=== PATIENT | female | born 1985 | race Caucasian/White ===

== ENCOUNTER → 2016-07-15 | Outpatient (CLI) | payer OTHER ==
[~2016-07-15] MED LIST: BCPILLS PO; CLIN150C PO; MULT-506 PO; ONDA4TAB10 SL; TRAM-10 PO
[2016-07-21 13:53] LABS: CHLAMYDIA TRACH RNA*** NOT DETECTED (NOT DETECTED); GC (NEIS GONORRHOEAE)RNA** NOT DETECTED (NOT DETECTED); TRICHOMONAS VAGINALIS RNA** NOT DETECTED (NOT DETECTED)
== END | disposition home or self-care (01) ==
LOC: C.LAB1850 09:39
PROVIDERS: ATTEND Obstetrics & Gynecology
DX: Z11.3 Encounter for screening for infections with a predominantly sexual mode of transmission (principal)

== ENCOUNTER → 2016-10-18 | Outpatient (CLI) | payer OTHER | END | disposition home or self-care (01) | LOC: C.LABSPEC 10:34 | PROVIDERS: ATTEND Urology | DX: R30.0 Dysuria (principal) ==

== ENCOUNTER → 2017-01-16 | Outpatient (CLI) | payer OTHER ==
[2017-01-16 12:21] LABS: BLOOD UREA NITROGEN 18 mg/dl (7-18); BUN/CREATININE RATIO 22.4 (10-20); CALCIUM 8.9 mg/dl (8.5-10.1); CARBON DIOXIDE 26 mmol/L (21-32); CHLORIDE 106 mmol/L (98-107); GLUCOSE 85 mg/dl (70-99); POTASSIUM 4.1 mmol/L (3.5-5.1); SODIUM 139 mmol/L (136-145)
[2017-01-16 12:25] LABS: CHOLESTEROL 192 mg/dl (0-200); HDL CHOLESTEROL 65 mg/dl; LDL CHOLESTEROL CALCULATED 113 mg/dl; TRIGLYCERIDES 69 mg/dl (0-150); VERY LOW DENSITY LIPOPROT CALC 14 mg/dl
== END | disposition home or self-care (01) ==
LOC: C.LABBFT 08:31
PROVIDERS: ATTEND Nurse Practitioner
DX: Z00.00 Encounter for general adult medical examination without abnormal findings (principal)

== ENCOUNTER 2017-02-27 10:25 | Emergency (ER) | payer OTHER ==
[~2017-02-27] VITALS: Ht 154.9 cm; Wt 57.8 kg
[~2017-02-27 10:25] MED LIST changes: -CLIN150C PO; -MULT-506 PO; -ONDA4TAB10 SL; -TRAM-10 PO
[2017-02-27 10:33] VITALS: BP 139/94; PULSE 89; TEMP 36.7; O2SAT 100; Ht 154.9 cm; Wt 57.8 kg
[2017-02-27] MEDS ORDERED: MULT-506 PO (10:40)
[2017-02-27] MEDS ORDERED: MoRPHine SULFATE 4 MG/ML 1 ML CARP\\VIAL IV STA (10:54)
[2017-02-27] MEDS ORDERED: ONDANSETRON INJ 2 MG/ML 2 ML VIAL IV STA (10:54)
[2017-02-27] MEDS ORDERED: CLINDAMYCIN IV 900 MG in DEXTROSE 5% 100ML 100 ML IV ONE (11:00)
[2017-02-27] MEDS ORDERED: XYLOCAINE 1%/SOD BICARB 20 ML VIAL INFIL ONE (11:00)
[2017-02-27] MEDS ORDERED: BENZOCAINE 20% AER SPR 82.5 GM CAN EXT ONE (11:00)
[2017-02-27 11:22] LABS: BASO % 0.2 %; BASO ABS # 0.02 K/uL (0-0.2); COMPLETE YES; HEMATOCRIT 38.9 % (37-47); IG% 0.1 %; LYMPH % 19.7 %; LYMPH ABS # 1.64 K/uL (1.2-3.4); MEAN CELL VOLUME 91.5 fL (80-100); MEAN CORPUSCULAR HEMOGLOBIN 30.4 pg (25-34); MEAN CORPUSCULAR HGB CONC 33.2 g/dl (32-36); MEAN PLATELET VOLUME 8.9 fL (7.4-10.4); MONO % 8.6 %; NEUT % 70.4 %; PLATELET COUNT 302 K/uL (130-400); RED BLOOD COUNT 4.25 M/uL (4.2-5.4); WHITE BLOOD COUNT 8.33 K/uL (4.8-10.8)
[2017-02-27 11:37] LABS: INR 0.9 (0.9-1.1); PARTIAL THROMBOPLASTIN RATIO 1.1
[2017-02-27 11:41] LABS: BUN/CREATININE RATIO 17.5 (10-20); CALCIUM 8.8 mg/dl (8.5-10.1); CREATININE 0.67 mg/dl (0.60-1.20)
[2017-02-27] MEDS ORDERED: TRAMADOL HCL 50 MG HOME PACK PO ONE (12:00)
[2017-02-27] MEDS ORDERED: CLINDAMYCIN 150MG HOME PACK PO ONE (12:00)
[2017-02-27] MEDS ORDERED: IBUPROFEN 200 MG TAB PO STA (12:00)
[2017-02-27] MEDS ORDERED: HYDROCODONE/ACETAMOPHEN 5/325MG TAB PO STA (12:00)
[2017-02-27] MEDS ORDERED: ONDA4TAB10 SL (12:13)
[2017-02-27] MEDS ORDERED: TRAM-10 PO (12:13)
[2017-02-27] MEDS ORDERED: CLIN150C PO (12:13)
--- NOTE | 2017-02-27 12:15 | EMERGENCY ROOM VISIT NOTE ---
History Report prepared by Ronel: Eduardo Kennedy Under the Supervision of: Dr. Benigno Russell M.D. First contact with patient: 10:38 Chief Complaint: FACIAL PAIN/INJURY Stated Complaint: R SWOLLEN GUM, TNDERNESS & SWELLING IN NECK, PAIN History of Present Illness The patient is a 31 year old white female who presents to the ED with a cc of right sided facial pain and swelling beginning about a month ago. Worsened over the past two weeks. Was on Augmentin for her symptoms. Was placed on Cipro for a UTI within the past month as well. Has been in contact with a dentist who prescribed her a mouth wash, but has not evaluated her in person. Negative fevers, chills, nausea or vomiting. No difficulty swallowing. No drainage. Source of History: patient Onset: about a month ago Position: head (right face) Quality: other (pain and swelling) Timing: worsening Associated Symptoms: No fevers, No chills, No nausea, No vomiting Review of Systems See HPI for pertinent positives and negatives. A total of ten systems were reviewed and were otherwise negative. Past Medical & Surgical Medical Problems: (1) No Known Active Medical Problems Family History No pertinent family history stated. Social History Smoking Status: Never Smoker Smokeless Tobacco Use: No Alcohol Use: occasionally Drug Use: none Occupation Status: employed Current/Historical Medications Scheduled Control Pills ( Control Pills), 1 TAB PO DAILY Clindamycin Hcl (Cleocin), 3 CAP PO TID Multivitamin (Multivitamin), 1 TAB PO DAILY Ondasetron Odt (Zofran Odt), 4 MG SL Q6H Scheduled PRN Tramadol (Ultram), 50 MG PO Q8H PRN for Pain Allergies Coded Allergies: No Known Allergies (Unverified , NONE, 02/27/17) Physical Exam Vital Signs Date Time Temp Pulse Resp B/P (MAP) Pulse Ox O2 Delivery O2 Flow Rate FiO2 02/27/17 10:33 36.7 89 20 139/94 100 Room Air Physical Exam GENERAL: Awake, alert, well-appearing, NAD HENT: Normocephalic, atraumatic. Obvious right sided facial swelling noted. No pain to the teeth. Posterior oropharynx is clear. Obvious area of fluctuance lateral to right mandible. EYES: Normal conjunctiva. Sclera non-icteric. NECK: Supple. No nuchal rigidity. FROM. No stridor. RESPIRATORY: CTAB, no rhonchi, wheezing, crackles CARDIAC: RRR, no MRG ABDOMEN: Soft, NTND, BS+ MSK: No chest wall TTP, no LE edema NEURO: GCS 15, CN 2-12 intact, moves all 4s on command SKIN: No rash or jaundice noted. Medical Decision & Procedures Laboratory Results 02/27/17 11:07 Red Blood Count 4.25, Mean Corpuscular Volume 91.5, Mean Corpuscular Hemoglobin 30.4, Mean Corpuscular Hemoglobin Concent 33.2, Mean Platelet Volume 8.9, Neutrophils (%) (Auto) 70.4, Lymphocytes (%) (Auto) 19.7, Monocytes (%) (Auto) 8.6, Eosinophils (%) (Auto) 1.0, Basophils (%) (Auto) 0.2, Neutrophils # (Auto) 5.86, Lymphocytes # (Auto) 1.64, Monocytes # (Auto) 0.72, Eosinophils # (Auto) 0.08, Basophils # (Auto) 0.02 02/27/17 11:07 Test 02/27/17 11:07 White Blood Count 8.33 K/uL (4.8-10.8) Red Blood Count 4.25 M/uL (4.2-5.4) Hemoglobin 12.9 g/dL (12.0-16.0) Hematocrit 38.9 % (37-47) Mean Corpuscular Volume 91.5 fL (80-100) Mean Corpuscular Hemoglobin 30.4 pg (25-34) Mean Corpuscular Hemoglobin Concent 33.2 g/dl (32-36) Platelet Count 302 K/uL (130-400) Mean Platelet Volume 8.9 fL (7.4-10.4) Neutrophils (%) (Auto) 70.4 % Lymphocytes (%) (Auto) 19.7 % Monocytes (%) (Auto) 8.6 % Eosinophils (%) (Auto) 1.0 % Basophils (%) (Auto) 0.2 % Neutrophils # (Auto) 5.86 K/uL (1.4-6.5) Lymphocytes # (Auto) 1.64 K/uL (1.2-3.4) Monocytes # (Auto) 0.72 K/uL (0.11-0.59) Eosinophils # (Auto) 0.08 K/uL (0-0.5) Basophils # (Auto) 0.02 K/uL (0-0.2) RDW Standard Deviation 41.4 fL (36.4-46.3) RDW Coefficient of Variation 12.3 % (11.5-14.5) Immature Granulocyte % (Auto) 0.1 % Immature Granulocyte # (Auto) 0.01 K/uL (0.00-0.02) Prothrombin Time 10.0 SECONDS (9.0-12.0) Prothromb Time International Ratio 0.9 (0.9-1.1) Activated Partial Thromboplast Time 28.1 SECONDS (21.0-31.0) Partial Thromboplastin Ratio 1.1 Anion Gap 7.0 mmol/L (3-11) Est Creatinine Clear Calc Drug Dose 98.5 ml/min Estimated GFR () 134.8 Estimated GFR (Non- 116.3 BUN/Creatinine Ratio 17.5 (10-20) Calcium Level 8.8 mg/dl (8.5-10.1) Laboratory results reviewed by me Medications Administered Medications (Trade) Dose Ordered Sig/Mason Route Start Time Stop Time Status Last Admin Dose Admin Morphine Sulfate (MoRPHine SULFATE INJ) 4 mg NOW STAT IV 02/27/17 10:54 02/27/17 10:56 DC 02/27/17 10:54 4 MG Clindamycin Phosphate 900 mg/ Dextrose 106 ml @ 100 mls/hr ONE ONCE IV 02/27/17 11:00 02/27/17 12:03 DC 02/27/17 11:00 100 MLS/HR Ondansetron HCl (Zofran Inj) 4 mg NOW STAT IV 02/27/17 10:54 02/27/17 10:57 DC 02/27/17 10:54 4 MG Acetaminophen/ Hydrocodone Bitart (Meridian 5/325 Tab) 1 tab ONE STAT PO 02/27/17 12:00 02/27/17 12:03 DC 02/27/17 12:00 1 TAB Ibuprofen (Advil Tab) 400 mg NOW STAT PO 02/27/17 12:00 02/27/17 12:03 DC 02/27/17 12:00 400 MG Tramadol HCl (Ultram Home Pack) 1 homepack UD ONCE PO 02/27/17 12:00 02/27/17 12:03 DC 02/27/17 12:00 1 HOMEPACK Clindamycin HCl (Cleocin 150MG Home Pack) 1 homepack UD ONCE PO 02/27/17 12:00 02/27/17 12:03 DC 02/27/17 12:00 1 HOMEPACK Procedure Incision & Drainage Indication: Abscess. Location: Lateral to the right lower mandible. Verbal consent was obtained after the risks and benefits were explained, including but not limited to bleeding, scarring, infection, pain, and bone/joint /nerve damage. At this time, the risks of the procedure are less than the risks of NOT performing the procedure. A time out was taken and the correct patient and site identified. A sterile field was set. The wound was anesthetized with 8 ml of 1% lidocaine without epinephrine. The abscess cavity was entered with an 18-gauge needle, and opened with a number 11 blade. Purulent material expressed. Copious irrigation was performed using saline. The wound was explored for foreign bodies and none found. Debridement was not performed. Packing placed and a sterile dressing applied. Detailed wound care instructions and signs and symptoms of worsening infection reviewed with the patient. No complications and the patient tolerated the procedure well. ED Course 1044: The patient was evaluated in room B5. A complete history and physical exam was performed. 1054: Ordered Morphine Sulfate 4 mg IV. 1100: Ordered Clindamycin Phosphate 900 mg/Dextrose 106 mL @ 100 mL/hr IV, Buffered Lidocaine 1% Inj 20 mL INFI. 1150: I performed an incision and drainage. See the procedure note for details. 1200: Ordered Cleocin 150 mg home pack PO, Ultram Home Pack PO, Advil Tab 400 mg PO, [place] 5/325 Tab PO. 1250: I reevaluated the patient. Discussed results and discharge instructions: she verbalized understanding and agreement. The patient is ready for discharge. Medical Decision The patient is a 31 year old white female who presents to the ED with a cc of right sided facial pain and swelling beginning about a month ago. Differential diagnosis includes but is not limited to; facial abscess, dental abscess, Kapil 's angina, and poor dentition. Patient was seen and evaluated at the bedside. Patient's had some mild facial swelling that has gotten progressively worse over the last month. No history diabetes. Patient did have an area of fluctuance lateral to the right lower mandible. An incision and drainage was performed with expression of purulent fluid. Patient's pain as well as discomfort and swelling improved. Patient was given first dose of antibiotics. Patient was given strict follow-up, discharge, and f/u instructions. Patient agreed with plan of care the patient was safely discharged home. Medication Reconcilliation Current Medication List: was personally reviewed by me Blood Pressure Screening Patient's blood pressure: Elevated blood pressure Blood pressure disposition: Elevated BP felt to be situational Impression Primary Impression: Mandibular abscess Additional Impressions: Facial pain Facial swelling Encounter for incision and drainage procedure Scribe Attestation The scribe's documentation has been prepared under my direction and personally reviewed by me in its entirety. I confirm that the note above accurately reflects all work, treatment, procedures, and medical decision making performed by me. Departure Information Dispostion Home / Self-Care Prescriptions Ondasetron Odt (ZOFRAN ODT) 4 Mg Tab 4 MG SL Q6H for Nausea, #6 TAB Prov: Benigno Russell M.D. 02/27/17 Clindamycin Hcl (CLEOCIN) 150 Mg Cap 3 CAP PO TID for 7 Days, #63 CAP Prov: Benigno Russell M.D. 02/27/17 Tramadol (Ultram) 50 Mg Tab 50 MG PO Q8H Y for Pain, #15 TAB Prov: Benigno Russell M.D. 02/27/17 Referrals Consuelo Gold C.R.NJosette (PCP) Patient Instructions Dental Abscess, Drainage Abscess, My [facility] Additional Instructions Please return to the emergency department if you have worsening or recurrent symptoms not amenable to at-home treatment. Please call for a follow-up appointment with her primary care physician. Please take your medications as prescribed. If you have other concerns and/or complaints please feel free to also call your primary care physician's office or return the ED for further evaluation, management, and treatment. You received narcotic or benzodiazepene medication while in the emergency room today. This is an addictive medication that may cause drowziness as well as constipation. Do not drive, operate heavy machinery, or drink alcohol under the influence of this medication. Take 800 mg Ibuprofen every 6 hours for pain w/ food for no more than two consecutive days. You may take 1000mg of tylenol every 6 hours for pain. You may take motrin/tylenol at same time or at staggered intervals. You may also apply ice packs to side of face for swelling. Take Tramadol for breakthrough pain. You have been examined and treated today on an emergency basis only. This is not a substitute for, or an effort to provide, complete comprehensive medical care. It is impossible to recognize and treat all injuries or illnesses in a single emergency department visit. It is therefore important that you follow up closely with [facility]. Call as soon as possible for an appointment. Thank you for your time and consideration. I look forward to speaking with you again soon. Please don't hesitate to call us if you have any questions. Work Instructions Return To Work: 1 day Specific Date: 03/01/17 Problem Qualifiers
== END 2017-02-27 12:51 | disposition home or self-care (01) ==
LOC: C.EDB 10:27
DX: K12.2 Cellulitis and abscess of mouth (principal); G50.1 Atypical facial pain; R22.0 Localized swelling, mass and lump, head

== ENCOUNTER → 2017-07-27 | Outpatient (CLI) | payer OTHER ==
[~2017-07-27] MED LIST changes: +MULT-506 PO; +ONDA4TAB10 SL; +TRAM-10 PO
== END | disposition home or self-care (01) ==
LOC: C.LABSPEC 17:21
PROVIDERS: ATTEND Nurse Practitioner Adult Health
DX: R30.0 Dysuria (principal)

== ENCOUNTER 2022-08-02 07:40 | Inpatient (IN) ==
--- NOTE | 2022-08-02 08:39 | History & Physical Report ---
Date of Service August 02, 2022 Assessment & Plan (1) Supervision of elderly primigravida: Plan: - Plan for induction with Cytotec - Bernal bulb was attempted last night but was unsuccessful - routine labor care, epidural as desired Admission and Anticipated Discharge Date Admission Date: August 02, 2022 History of Present Illness Primary Care Provider: PARI Whitt Shannon is a 37 y/o female currently at 40 5/7 WGA with an KUNAL 07/28/2022 as determined by LMP who is here for induction. irregular contractions; + movement; denies fluid loss; denies bloody show External FHT and external uterine monitors used; Category 1 tracing; moderate FHT variability. Had regular appointments with OB. OB Labs: Blood Type A Positive 01/14/22 Antibody Screen NEGATIVE 01/14/22 Hemoglobin 11.8 g/dl (12.0-16.0) L 05/14/22 Hematocrit 33.7 % (34.1-44.9) L 05/14/22 Mean Corpuscular Volume 91.5 fL (80.0-100.0) 12/21/21 Platelet Count 345 Thousand/uL (140-400) 12/21/21 Varicella-Zoster IgG Antibody 343.40 index 03/13/20 Rubella IgG Antibody Immune (Immune) 01/14/22 Rapid Plasma Reagin Nonreactive (Nonreactive) 01/14/22 Hepatitis B Surface Antigen. NON-REACTIVE (NON-REACTIVE) 12/21/21 Hepatitis C Antibody (EIA) NON-REACTIVE (NON-REACTIVE) 12/21/21 HIV (1&2) Ab and P24 Ag, 4th Gener NON-REACTIVE (NON-REACTIVE) 12/21/21 HIV (1&2) Ag and Ab Confirmation NON-REACTIVE (NON-REACTIVE) 01/14/22 Glucose 1 Hour 50 gm Load 177 mg/dl (70-130) H 02/15/22 GBS negative OB Optional Labs: Chlamydia trachomatis RNA NOT DETECTED (NOT DETECTED) 12/20/21 Neisseria gonorrhoeae RNA NOT DETECTED (NOT DETECTED) 12/20/21 12/21/21 RPR Non reactive Declines cf/sma--mln cfdna-low risk--mln Declines msafp--mln Allergies Allergy/AdvReac Type Severity Reaction Status Date / Time acetaminophen [From Percocet] Allergy GI upset Verified 08/01/22 12:53 morphine Allergy GI upset Verified 08/01/22 12:53 oxycodone [From Percocet] Allergy GI upset Verified 08/01/22 12:53 Home Medications Medication Instructions Recorded Confirmed Type prenat.vits,cedrick,ytr-ivsg-iumup 1 tab PO DAILY 12/13/21 08/01/22 History Patient History Medical History Atypical squamous cells of undetermined significance (ASC-US) on cervical Pap smear History of chicken pox Hx of dysplastic nevus Surgical History H/O oral surgery Status post colposcopy Family History Grandfather (Maternal) Coronary heart disease Grandmother Diabetes Hypertension Grandfather Diabetes Hypertension Leukemia Myocardial infarction Denies family history of Ovarian cancer Breast cancer Colorectal cancer Social History Smoking Status: Never smoker Hx Alcohol Use: No Hx Substance Use: No Preferred Language: Belarusian Communication Ability: Effective Maintenance Superintendent Required: No Beliefs That Will Affect Care: None marital status: Single marital status details: kaity Acosta [phone] Current Living Situation: Significant Other Current Living Situation Comment: lives with ninfab, no pets current occupational status: employed 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 Other Information That Helps Us Care for You: No Feels Safe at Home: Yes Safety Concerns: Feels Safe At This Time Gender Identity: Female Assistive Devices: None OB History History : 1 Full term: 0 Premature: 0 Total Number of Induced Abortions: 0 Total Number of Spontaneous Abortions: 0 Ectopics: 0 Multiple births: 0 Number of Living Children: 0 Menstrual History Last menstrual period: Yes Menstrual reliability: definite Flow: normal Menstrual regularity: regular Monthly: Yes Age at menarche: 12 On control pills at conception: No Date of positive home test: 11/25/21 Menstrual history comments: cycles 25-28 days Details: last pap 09/22/[address] Mcarthur Review of Systems Denies fever, chills, sweats Denies shortness of breath, difficulty breathing, chest pain, palpitations, chest pressure. Denies breast pain. Denies dysuria. Denies headache or changes in vision. Physical Exam Physical Exam: General: Alert, oriented. No acute distress. Cardiac: Regular rate and rhythm, no murmurs/rubs/gallops. Respiratory: Clear to auscultation bilaterally a/p, no wheezes/rales/rhonchi. No increased work of breathing. Symmetrical chest rise. No respiratory distress. Abdomen: Gravid; + FHTs Pelvic: Closed; Effacement 50%; Station -[address] Marquez Lower Extremities: No lower extremity edema or swelling. No deep calf pain. Kevin's negative bilaterally Results & Data ([facility]) Vital Signs (Past 12 Hours) Vital Signs Pulse BP 08/02/22 08:05 94 H 124/89 Supervising Physician Co-Signing Physician Notes Resident Physician Supervision Note: I interviewed and examined the patient. Discussed with Dr. Weaver and agree with findings and plan as documented in the note. Any exceptions or clarifications are listed here: 37yo @ 40 5/7, here for IOL. Attempt at bernal bulb insertion last night was not successful, patient declines another attempt this morning. Instead, she was agreeable to cytotec for cervical ripening. 25mcg cytotec placed vaginally. Documented By: Marsha Marquez, Resident Activity Tracking Resident Involvement: Resident Care Provided Care Provided: OB Delivery
[2022-08-02] MEDS ORDERED: OXYTOCIN 30 UNITS/500 ML BAG IV PRN ×2 (08:58)
[2022-08-02] MEDS ORDERED: LIDOCAINE 1% LOCAL 20 ML VIAL INFIL PRN (08:58)
[2022-08-02] MEDS ORDERED: miSOPROStoL 25 MCG TAB PV SCH ×2 (09:30→12:00)
[2022-08-02 09:55] LABS: Hematocrit (blood only) 35.9 % (37.0-47.0); Hemoglobin 12.9 g/dl (12.0-16.0); Mean Corpuscular Hemoglobin 32.4 pg (25.0-34.0); Mean Corpuscular Hgb Conc 35.9 g/dL (32.0-36.0); Mean Corpuscular Volume 90.2 fL (80.0-100.0); Mean Platelet Volume 10.5 fL (9.4-12.4); Platelet Count 228 K/uL (130-400); RDW Coefficient of Variation 12.5 % (11.5-14.5); RDW Standard Deviation 40.6 fL (36.4-46.3); Red Blood Count 3.98 M/uL (4.20-5.40); White Blood Count 7.09 K/ul (4.8-10.8)
--- NOTE | 2022-08-02 14:20 | Labor Progress Brief Note ---
Date of Service August 02, 2022 Subjective Feeling ctx. FHT Cat 1 [place] Q 1-3 SVE /-2, soft, posterior - exam is very difficult d/t patient's discomfort. Will start pitocin, as contraction pattern does not allow another dose of cytotec. Patient agrees with plan. Assessment & Plan Admission and Anticipated Discharge Date Admission Date: August 02, 2022 Results & Data ([facility]) Vital Signs (Past 12 Hours) Vital Signs Temp Pulse Resp BP 08/02/22 08:41 36.5 C 20 08/02/22 13:43 36.8 C 69 20 137/85 08/02/22 08:05 94 H 124/89 Coding Level of Care Code None
[2022-08-02] MEDS: LACTATED RINGER'S 1,000 ML IV PRN ×2 (14:29→20:01)
[2022-08-02] MEDS ORDERED: Nursing to Pharmacy Communication SCH (14:30)
[2022-08-02] MEDS ORDERED: fentaNYL 2MCG/ML ROPIVACAINE 1.25MG/ML 100 ML BAG EPI ONE (19:17)
[2022-08-02] MEDS ORDERED: fentaNYL citrate 100 MCG/2 ML VIAL ONE (19:17)
[2022-08-02] MEDS ORDERED: LIDOCAINE 2%/EPINEPHRINE 1:200,000 20 ML SDV ONE (19:17)
[2022-08-02] MEDS ORDERED: ePHEDrine sulfate 50 MG/ML AMP ONE (19:17)
[2022-08-02] MEDS ORDERED: SODIUM CHLORIDE 0.9% INJ 10 ML VIAL ONE ×2 (19:17→22:59)
[2022-08-02] MEDS ORDERED: BUPIVACAINE 0.25% 30 ML VIAL ONE ×2 (19:17→22:59)
[2022-08-02] MEDS ORDERED: ePHEDrine sulfate 50 MG/ML AMP IV PRN (19:21)
[2022-08-02] MEDS ORDERED: diphenhydrAMINE 50 MG/ML VIAL IV PRN (19:21)
[2022-08-02] MEDS ORDERED: NALOXONE HCL 1 MG in SODIUM CHLORIDE 0.9% 1000ML 1,000 ML IV PRN (19:21)
[2022-08-02] MEDS ORDERED: NALBUPHINE HCL INJ 10 MG/ML AMP IV PRN (19:21)
[2022-08-02] MEDS ORDERED: NALOXONE HCL 0.4 MG/1 ML VIAL/CARP IV PRN (19:21)
--- NOTE | 2022-08-02 19:21 | Anesthesiology Consultation ---
Date of Service August 02, 2022 Assessment & Plan (1) Encounter for pre-operative examination: Chart Review Chart Review: Patient NOT seen in Pre Admission Testing and Acceptable Risk for Labor Epidural Consults Requested none History Height/Weight Height: 5 ft 1 in Weight: 75.75 kg Allergies Allergy/AdvReac Type Severity Reaction Status Date / Time acetaminophen [From Percocet] Allergy GI upset Verified 08/01/22 12:53 morphine Allergy GI upset Verified 08/01/22 12:53 oxycodone [From Percocet] Allergy GI upset Verified 08/01/22 12:53 Medications Home Medications Medication Instructions Recorded Confirmed Last Taken prenat.vits,cedrick,xnt-mfjt-gpooo 1 tab PO DAILY 12/13/21 08/02/22 08/01/22 21:00 Active Medications Generic Name Dose Route Start Last Admin Trade Name Freq PRN Reason Stop Dose Admin Oxytocin 30 units in 500 mls @ 7 mls/hr 08/02/22 08:58 08/02/22 19:02 Pitocin IV 08/04/22 08:57 0.42 units/hr .Q24H PRN 7 mls/hr Labor Induction/Augmentation Titration Protocol 0.42 UNITS/HR Lactated Ringer's 1,000 mls @ 125 mls/hr 08/02/22 08:58 08/02/22 14:29 Lr IV 08/04/22 08:57 125 mls/hr .Q8H PRN Administration L&D Protocol Protocol Past Medical History Medical History Atypical squamous cells of undetermined significance (ASC-US) on cervical Pap smear History of chicken pox Hx of dysplastic nevus Past Family History Family History Grandfather (Maternal) Coronary heart disease Grandmother Diabetes Hypertension Grandfather Diabetes Hypertension Leukemia Myocardial infarction Denies family history of Ovarian cancer Breast cancer Colorectal cancer Past Surgical History Surgical History H/O oral surgery Status post colposcopy Social History Smoking Status: Never smoker Hx Alcohol Use: No Hx Substance Use: No substance use type: does not use Physical Exam Vital Signs Last Vital Signs Temp 98.2 F 08/02/22 15:08 Pulse 74 08/02/22 19:02 Resp 16 08/02/22 15:08 BP 123/72 08/02/22 19:02 Testing Laboratory Results 08/02/22 09:08
[2022-08-02] MEDS: fentaNYL 2MCG/ML ROPIVACAINE 1.25MG/ML 100 ML BAG EPI PRN (19:48)
[2022-08-02] MEDS ORDERED: ONDANSETRON INJ 2 MG/ML 2 ML VIAL IV PRN (20:31)
--- NOTE | 2022-08-02 20:32 | Labor Progress Brief Note ---
Date of Service August 02, 2022 Subjective Comfortable now with epidural. FHT Cat 1 [place] Q 2 SVE /-1 AROM clear fluid. Continue labor/pitocin. Assessment & Plan Admission and Anticipated Discharge Date Admission Date: August 02, 2022 Results & Data ([facility]) Vital Signs (Past 12 Hours) Vital Signs Temp Pulse Resp BP Pulse Ox 08/02/22 15:08 36.8 C 16 08/02/22 08:41 36.5 C 20 08/02/22 20:25 125 H 98 08/02/22 20:20 66 89 L 08/02/22 20:16 87 92 08/02/22 20:15 95 H 113/76 99 08/02/22 20:10 68 100 08/02/22 20:08 62 94 08/02/22 20:05 76 98 08/02/22 19:00 16 08/02/22 19:00 36.4 C L 16 08/02/22 20:00 99 08/02/22 20:00 93 H 08/02/22 20:00 100 H 91 08/02/22 19:59 69 18 123/72 08/02/22 19:55 63 100 08/02/22 19:53 91 H 93 08/02/22 19:51 65 108/65 08/02/22 19:50 97 08/02/22 19:50 92 H 08/02/22 19:50 77 107/66 08/02/22 19:48 72 107/59 L 08/02/22 19:45 71 99 08/02/22 19:46 73 110/60 08/02/22 19:44 79 18 123/76 08/02/22 19:43 81 92 08/02/22 19:40 73 98 08/02/22 19:35 73 100 08/02/22 19:30 75 100 08/02/22 19:02 74 123/72 08/02/22 17:59 72 121/66 08/02/22 17:07 64 119/75 08/02/22 15:58 65 118/69 08/02/22 15:04 70 123/76 08/02/22 14:38 80 123/80 08/02/22 13:43 36.8 C 69 20 137/85 Coding Level of Care Code None
[2022-08-02] MEDS ORDERED: NURSING L&D Epidural Breakthrough Pain Update ONE (22:14)
[2022-08-02] MEDS: fentaNYL citrate 100 MCG/2 ML VIAL ONE ×2 (23:06→23:11)
--- NOTE | 2022-08-02 23:51 | Labor Progress Brief Note ---
Date of Service August 02, 2022 Subjective Uncomfortable with ctx, epidural re-dosed. FHT Cat 1 [place] Q 2 SVE /-1 per RN Continue IOL Assessment & Plan Admission and Anticipated Discharge Date Admission Date: August 02, 2022 Results & Data ([facility]) Vital Signs (Past 12 Hours) Vital Signs Temp Pulse Resp BP Pulse Ox 08/02/22 15:08 36.8 C 16 08/02/22 23:49 68 112/58 L 08/02/22 23:45 74 18 93 08/02/22 23:15 18 08/02/22 23:15 18 08/02/22 23:44 71 93 08/02/22 23:40 75 95 08/02/22 23:39 70 94 08/02/22 23:35 76 93 08/02/22 23:34 104 H 128/63 08/02/22 23:33 71 94 08/02/22 23:30 83 97 08/02/22 23:29 80 115/77 08/02/22 23:27 82 118/57 L 94 08/02/22 23:25 93 H 163/65 H 97 08/02/22 23:23 93 H 148/79 H 08/02/22 23:20 96 H 95 08/02/22 23:17 103 H 139/91 08/02/22 23:15 96 08/02/22 23:15 113 H 08/02/22 23:14 125 H 94 08/02/22 23:15 133 H 137/90 08/02/22 23:10 75 93 08/02/22 23:11 70 135/83 08/02/22 23:09 63 125/82 08/02/22 23:08 65 93 08/02/22 23:07 72 138/89 08/02/22 23:05 97 08/02/22 23:05 74 08/02/22 23:05 69 132/85 08/02/22 23:02 93 08/02/22 23:02 73 08/02/22 23:02 70 141/80 H 08/02/22 23:00 36.8 C 72 94 08/02/22 22:57 69 94 08/02/22 22:55 69 97 08/02/22 22:50 75 96 08/02/22 22:48 69 92 08/02/22 22:45 16 08/02/22 22:45 81 16 98 08/02/22 22:44 92 H 127/70 08/02/22 22:40 84 95 08/02/22 22:37 78 93 08/02/22 22:35 72 96 08/02/22 22:30 16 08/02/22 22:30 16 08/02/22 22:31 72 93 08/02/22 22:30 97 08/02/22 22:30 71 08/02/22 22:30 67 114/73 08/02/22 22:25 68 97 08/02/22 22:20 69 98 08/02/22 22:15 62 18 127/76 94 08/02/22 22:13 63 94 08/02/22 22:10 36.7 C 68 97 08/02/22 22:05 61 94 08/02/22 22:03 63 93 08/02/22 22:00 72 16 98 08/02/22 21:59 74 118/66 08/02/22 21:55 89 95 08/02/22 21:50 69 96 08/02/22 21:49 67 94 08/02/22 21:45 66 16 108/57 L 97 08/02/22 21:43 68 94 08/02/22 21:40 75 95 08/02/22 21:35 95 08/02/22 21:35 80 08/02/22 21:35 76 94 08/02/22 21:30 70 16 97 08/02/22 21:31 68 118/68 08/02/22 21:25 75 96 08/02/22 21:22 71 94 08/02/22 21:20 69 97 08/02/22 21:16 94 H 100/54 L 94 08/02/22 21:15 84 18 94 08/02/22 21:10 70 96 08/02/22 21:05 75 95 08/02/22 21:04 67 94 08/02/22 21:00 16 08/02/22 21:00 16 08/02/22 21:00 94 08/02/22 21:00 68 08/02/22 21:00 64 113/68 08/02/22 20:57 68 94 08/02/22 20:55 75 94 08/02/22 20:52 72 94 08/02/22 20:50 68 96 08/02/22 20:45 82 18 95 08/02/22 20:44 73 109/77 94 08/02/22 20:40 86 95 08/02/22 20:35 83 97 08/02/22 20:30 81 18 98 08/02/22 20:25 125 H 98 08/02/22 20:20 66 89 L 08/02/22 20:16 87 92 08/02/22 20:15 95 H 16 113/76 99 08/02/22 20:10 68 100 08/02/22 20:08 62 94 08/02/22 20:05 76 98 08/02/22 19:00 16 08/02/22 19:00 36.4 C L 16 08/02/22 20:00 99 08/02/22 20:00 93 H 08/02/22 20:00 100 H 91 08/02/22 19:59 69 18 123/72 08/02/22 19:55 63 100 08/02/22 19:53 91 H 93 08/02/22 19:51 65 108/65 08/02/22 19:50 97 08/02/22 19:50 92 H 08/02/22 19:50 77 107/66 08/02/22 19:48 72 107/59 L 08/02/22 19:45 71 99 08/02/22 19:46 73 110/60 08/02/22 19:44 79 18 123/76 08/02/22 19:43 81 92 08/02/22 19:40 73 98 08/02/22 19:35 73 100 08/02/22 19:30 75 100 08/02/22 19:02 74 123/72 08/02/22 17:59 72 121/66 08/02/22 17:07 64 119/75 08/02/22 15:58 65 118/69 08/02/22 15:04 70 123/76 08/02/22 14:38 80 123/80 08/02/22 13:43 36.8 C 69 20 137/85 Coding Level of Care Code None
[2022-08-03] MEDS: fentaNYL 2MCG/ML ROPIVACAINE 1.25MG/ML 100 ML BAG EPI PRN ×3 (00:07→08:14)
[2022-08-03] MEDS: LACTATED RINGER'S 1,000 ML IV PRN ×2 (03:14→07:39)
--- NOTE | 2022-08-03 07:27 | Labor Progress Brief Note ---
Date of Service August 03, 2022 Subjective Comfortable after epidural redose. FHT Cat 1 [place] Q 2 SVE 7/100/0 Continue labor. Assessment & Plan Admission and Anticipated Discharge Date Admission Date: August 02, 2022 Results & Data ([facility]) Vital Signs (Past 12 Hours) Vital Signs Temp Pulse Resp BP Pulse Ox 08/03/22 07:20 82 92 08/03/22 07:18 71 110/63 08/03/22 07:15 72 93 08/03/22 07:10 91 H 94 08/03/22 07:07 90 94 08/03/22 07:05 76 93 08/03/22 07:03 36.9 C 71 18 103/59 L 08/03/22 07:00 77 92 08/03/22 06:55 74 92 08/03/22 06:52 68 94 08/03/22 06:50 75 93 08/03/22 06:48 77 101/57 L 08/03/22 06:45 81 93 08/03/22 06:40 70 91 08/03/22 06:35 79 93 08/03/22 06:34 68 110/60 08/03/22 06:32 71 93 08/03/22 06:30 89 94 08/03/22 06:25 82 94 08/03/22 06:26 85 94 08/03/22 06:20 70 91 08/03/22 06:18 69 94 08/03/22 06:19 68 112/62 08/03/22 06:15 69 92 08/03/22 06:10 71 93 08/03/22 06:05 70 92 08/03/22 06:04 71 99/55 L 08/03/22 06:00 73 92 08/03/22 05:55 76 92 08/03/22 05:50 79 93 08/03/22 05:48 69 108/57 L 08/03/22 05:45 69 91 08/03/22 05:40 73 91 08/03/22 05:35 79 93 08/03/22 05:31 83 94 08/03/22 05:30 37.5 C 88 16 93 08/03/22 05:25 79 94 08/03/22 05:24 76 94 08/03/22 05:20 84 93 08/03/22 05:19 78 123/70 08/03/22 05:17 81 94 08/03/22 05:15 69 92 08/03/22 05:10 74 92 08/03/22 05:05 76 91 08/03/22 05:03 91 H 94 08/03/22 05:04 83 124/66 08/03/22 05:00 73 18 92 08/03/22 04:55 71 91 08/03/22 04:53 90 94 08/03/22 04:50 71 93 08/03/22 04:48 81 110/62 08/03/22 04:45 76 94 08/03/22 04:40 73 92 08/03/22 04:35 72 91 08/03/22 04:33 78 111/64 08/03/22 04:30 71 16 92 08/03/22 04:25 81 94 08/03/22 04:24 79 94 08/03/22 04:20 72 92 08/03/22 04:19 65 118/68 08/03/22 04:15 95 08/03/22 04:15 85 08/03/22 04:15 83 94 08/03/22 04:10 88 93 08/03/22 04:05 94 08/03/22 04:05 68 08/03/22 04:05 70 148/70 H 08/03/22 04:04 78 94 08/03/22 04:00 70 18 95 08/03/22 03:55 74 95 08/03/22 03:56 76 94 08/03/22 03:50 72 93 08/03/22 03:48 68 126/75 08/03/22 03:45 94 08/03/22 03:45 87 08/03/22 03:45 73 93 08/03/22 03:40 95 08/03/22 03:40 70 08/03/22 03:40 80 94 08/03/22 03:35 76 95 08/03/22 03:33 94 08/03/22 03:33 68 08/03/22 03:33 64 137/57 L 08/03/22 03:30 73 93 08/03/22 03:28 75 94 08/03/22 03:25 80 93 08/03/22 03:23 70 94 08/03/22 03:20 74 93 08/03/22 03:18 82 137/63 08/03/22 03:17 72 93 08/03/22 03:15 84 95 08/03/22 03:11 83 94 08/03/22 03:10 81 93 08/03/22 03:05 36.8 C 72 18 94 08/03/22 03:03 72 94 08/03/22 03:04 67 127/73 08/03/22 03:00 82 93 08/03/22 02:55 85 93 08/03/22 02:54 98 H 94 08/03/22 02:50 95 H 95 08/03/22 02:49 82 129/71 94 08/03/22 02:45 97 H 94 08/03/22 02:42 88 94 08/03/22 02:40 91 H 93 08/03/22 02:35 75 93 08/03/22 02:33 100 H 129/80 08/03/22 02:30 81 92 08/03/22 02:25 80 94 08/03/22 02:22 84 94 08/03/22 02:20 96 08/03/22 02:20 92 H 08/03/22 02:20 90 135/82 08/03/22 02:15 97 H 95 08/03/22 02:12 91 H 94 08/03/22 02:10 86 95 08/03/22 02:07 95 H 94 08/03/22 02:05 83 95 08/03/22 02:04 90 136/88 08/03/22 02:00 91 H 16 95 08/03/22 01:55 89 92 08/03/22 01:50 80 93 08/03/22 01:49 80 132/83 08/03/22 01:45 76 93 08/03/22 01:44 83 94 08/03/22 01:40 86 92 08/03/22 01:39 87 94 08/03/22 01:35 91 H 93 08/03/22 01:33 97 H 127/83 08/03/22 01:32 95 H 94 08/03/22 01:30 98 H 18 95 08/03/22 01:25 100 H 94 08/03/22 01:26 102 H 94 08/03/22 01:20 86 93 08/03/22 01:19 78 130/78 08/03/22 01:15 88 94 08/03/22 01:14 81 94 08/03/22 01:10 85 93 08/03/22 01:05 79 95 08/03/22 01:04 94 H 136/71 94 08/03/22 01:00 36.7 C 95 H 16 94 08/03/22 00:55 93 H 92 08/03/22 00:50 91 H 95 08/03/22 00:49 90 142/84 H 08/03/22 00:46 101 H 94 08/03/22 00:45 107 H 92 08/03/22 00:40 91 H 94 08/03/22 00:39 96 H 94 08/03/22 00:35 84 90 08/03/22 00:34 90 110/64 08/03/22 00:31 83 92 08/03/22 00:30 93 H 16 97 08/03/22 00:25 94 H 98 08/03/22 00:23 97 H 94 08/03/22 00:20 86 92 08/03/22 00:18 84 118/74 08/03/22 00:15 92 H 18 93 08/03/22 00:11 89 94 08/03/22 00:10 97 H 93 08/03/22 00:08 97 H 127/88 08/03/22 00:05 93 H 93 08/03/22 00:04 82 119/69 08/03/22 00:00 87 18 95 08/02/22 23:55 78 95 08/02/22 23:56 84 92 08/02/22 23:50 82 87 L 08/02/22 23:49 68 112/58 L 08/02/22 23:45 74 18 93 08/02/22 23:15 18 08/02/22 23:15 18 08/02/22 23:44 71 93 08/02/22 23:40 75 95 08/02/22 23:39 70 94 08/02/22 23:35 76 93 08/02/22 23:34 104 H 128/63 08/02/22 23:33 71 94 08/02/22 23:30 83 97 08/02/22 23:29 80 115/77 08/02/22 23:27 82 118/57 L 94 08/02/22 23:25 93 H 163/65 H 97 08/02/22 23:23 93 H 148/79 H 08/02/22 23:20 96 H 95 08/02/22 23:17 103 H 139/91 08/02/22 23:15 96 08/02/22 23:15 113 H 08/02/22 23:14 125 H 94 08/02/22 23:15 133 H 137/90 08/02/22 23:10 75 93 08/02/22 23:11 70 135/83 08/02/22 23:09 63 125/82 08/02/22 23:08 65 93 08/02/22 23:07 72 138/89 08/02/22 23:05 97 08/02/22 23:05 74 08/02/22 23:05 69 132/85 08/02/22 23:02 93 08/02/22 23:02 73 08/02/22 23:02 70 141/80 H 08/02/22 23:00 36.8 C 72 94 08/02/22 22:57 69 94 08/02/22 22:55 69 97 08/02/22 22:50 75 96 08/02/22 22:48 69 92 08/02/22 22:45 16 08/02/22 22:45 81 16 98 08/02/22 22:44 92 H 127/70 08/02/22 22:40 84 95 08/02/22 22:37 78 93 08/02/22 22:35 72 96 08/02/22 22:30 16 08/02/22 22:30 16 08/02/22 22:31 72 93 08/02/22 22:30 97 08/02/22 22:30 71 08/02/22 22:30 67 114/73 08/02/22 22:25 68 97 08/02/22 22:20 69 98 08/02/22 22:15 62 18 127/76 94 08/02/22 22:13 63 94 08/02/22 22:10 36.7 C 68 97 08/02/22 22:05 61 94 08/02/22 22:03 63 93 08/02/22 22:00 72 16 98 08/02/22 21:59 74 118/66 08/02/22 21:55 89 95 08/02/22 21:50 69 96 08/02/22 21:49 67 94 08/02/22 21:45 66 16 108/57 L 97 08/02/22 21:43 68 94 08/02/22 21:40 75 95 08/02/22 21:35 95 08/02/22 21:35 80 08/02/22 21:35 76 94 08/02/22 21:30 70 16 97 08/02/22 21:31 68 118/68 08/02/22 21:25 75 96 08/02/22 21:22 71 94 08/02/22 21:20 69 97 08/02/22 21:16 94 H 100/54 L 94 08/02/22 21:15 84 18 94 08/02/22 21:10 70 96 08/02/22 21:05 75 95 08/02/22 21:04 67 94 08/02/22 21:00 16 08/02/22 21:00 16 08/02/22 21:00 94 08/02/22 21:00 68 08/02/22 21:00 64 113/68 08/02/22 20:57 68 94 08/02/22 20:55 75 94 08/02/22 20:52 72 94 08/02/22 20:50 68 96 08/02/22 20:45 82 18 95 08/02/22 20:44 73 109/77 94 08/02/22 20:40 86 95 08/02/22 20:35 83 97 08/02/22 20:30 81 18 98 08/02/22 20:25 125 H 98 08/02/22 20:20 66 89 L 08/02/22 20:16 87 92 08/02/22 20:15 95 H 16 113/76 99 08/02/22 20:10 68 100 08/02/22 20:08 62 94 08/02/22 20:05 76 98 08/02/22 20:00 99 08/02/22 20:00 93 H 08/02/22 20:00 100 H 91 08/02/22 19:59 69 18 123/72 08/02/22 19:55 63 100 08/02/22 19:53 91 H 93 08/02/22 19:51 65 108/65 08/02/22 19:50 97 08/02/22 19:50 92 H 08/02/22 19:50 77 107/66 08/02/22 19:48 72 107/59 L 08/02/22 19:45 71 99 08/02/22 19:46 73 110/60 08/02/22 19:44 79 18 123/76 08/02/22 19:43 81 92 08/02/22 19:40 73 98 08/02/22 19:35 73 100 08/02/22 19:30 75 100 Coding Level of Care Code None
--- NOTE | 2022-08-03 10:00 | Delivery Summary ---
Vaginal Delivery Summary Date of Service August 03, 2022 Vaginal Delivery Summary Vaginal Delivery Summary: Pre-delivery diagnoses: 37yo @ 40 6/7, IOL for postdates, AMA Post-delivery diagnoses: same Procedure: spontaneous vaginal delivery Surgeon: Marsha Marquez DO Complications: none Findings: Viable female . Apgars: 3/8. Weight pending, please see nursery records. Estimated blood loss: 300ml Description of delivery: The patient progressed to complete with epidural anesthesia. She then began to push. She spontaneously vaginally delivered a viable from the cephalic presentation. The head delivered in CATRACHITO position. The head delivered, no nuchal. Anterior shoulder did not deliver immediately, therefore patient was repositioned in McRobert's Maneuver, then suprapubic pressure was applied. The anterior shoulder did not deliver i mmediately, therefore patient was repositioned again with McRobert's, and posterior shoulder delivered easily. The anterior shoulder followed, followed by the body. The baby was placed on mother's abdomen and a spontaneous cry was heard. The cord was immediately doubly clamped and cut and the baby was immediately handed off to the waiting nursery team. A segment was retained for cord gases. Cord blood was obtained. The placenta was delivered spontaneously intact with a 3-vessel cord. The uterus and vagina were swept of clots and debris. IV pitocin was given. The uterus became firm. The cervix, vagina, and perineum were inspected and superficial lacerations noted - right vaginal, left perineal - hemostatic, therefore not repaired. Excellent hemostasis was observed. Social Media Senior Associate was at bedside and briefly debriefed Mom. I also debriefed Mom on the events of shoulder dystocia. Total time from delivery of head to body - 90 seconds. The mother is recovering in stable and good condition in the room, baby was taken to nursery. Sponge and instrument counts were correct x 2. Marsha Marquez DO [facility]
[2022-08-03] MEDS ORDERED: HYDROCORTISONE ACETATE 25 MG SUPP PR PRN (10:08)
[2022-08-03] MEDS ORDERED: ACETAMINOPHEN 325 MG TAB PO PRN (10:08)
[2022-08-03] MEDS ORDERED: bisacodyL 10 MG SUPP PR PRN (10:08)
[2022-08-03] MEDS ORDERED: oxyCODONE/ACETAMINOPHEN 5mg/325mg TAB PO PRN (10:08)
[2022-08-03] MEDS ORDERED: BENZOCAINE 20% AER SPR 82.5 GM CAN EXT PRN (10:08)
[2022-08-03] MEDS ORDERED: OXYTOCIN 30 UNITS/500 ML BAG IV PRN (10:08)
[2022-08-03] MEDS ORDERED: DIPHTHERIA/TETANUS/PERTUSSIS 0.5mL SYR/VIAL (Age 7+yrs) IM ONE (10:08)
[2022-08-03 10:43] LABS: Base Excess Cord Arterial Bld -10.3 mEq/L (-9-1.8); CO2 Cord Arterial Blood 60 mmHg (39.1-73.5); HCO3 Cord Arterial Blood 20 mmol/L (19.7-28.5); Oxygen Sat Cord Arterial Blood < 60.0 % (<60); PO2 Cord Arterial Blood 28 mmHg (4.1-31.7); pH Cord Arterial Blood 7.13 (7.1-7.38)
--- NOTE | 2022-08-03 12:20 | Anesthesia Procedure Note ---
Date of Service August 03, 2022 Anesthesia Post Epidural Note Vital Signs Vital Signs: Temp Pulse Resp BP Pulse Ox 36.9 C 72 18 113/76 94 08/03/22 07:03 08/03/22 12:10 08/03/22 07:03 08/03/22 12:10 08/03/22 09:43 Pain Intensity Lower Abdomen: Pain Intensity: 7 Notes Mental Status: alert / awake / arousable Nausea / Vomiting: adequately controlled Pain: adequately controlled Airway Patency, RR, SpO2: stable & adequate BP & HR: stable & adequate Hydration State: stable & adequate Neuraxial Anesthesia: was administered and sensory block is resolving Anesthetic Complications: no major complications apparent and Pt Satisfied with anesthetic care Epidural: Removed without complications and With tip intact
[2022-08-03] MEDS: IBUPROFEN 600 MG TAB PO PRN (13:55)
[2022-08-03] MEDS: DOCUSATE SODIUM 100 MG CAP PO SCH (22:19)
--- NOTE | 2022-08-04 05:35 | Obstetrical Progress Note ---
Date of Service <Maria Elena SMariangel Weaver DO - Last Filed: 08/04/22 06:27> August 04, 2022 Assessment & Plan <Maria Elena Raj Weaver DO - Last Filed: 08/04/22 06:27> (1) Status post vaginal delivery: continue OOB, ambulation, diet as tolerated - Plan for 6 week post f/u - Contact dermatitis wear epidural tape was; non pruritic/pain <Dottie Mcarthur MD - Last Filed: 08/04/22 06:43> (1) Status post vaginal delivery: Subjective <Maria Elena SMariangel Weaver DO - Last Filed: 08/04/22 06:27> Shannon is a 37 y/o female who is now PPD # 1 following vaginal delivery at 40 6/7 weeks. Reports feeling well overall this morning. Mild abdominal cramping, pain well managed on analgesics. Voiding. Tolerating meals overnight and able to ambulate some. Is passing gas and no bowel movements. Some persistent lochia with some improvement this morning. Breast feeding. Noticed rash consistent with contact dermatitis on back where epidural tape was placed. Review of Systems Denies fever, chills, sweats Denies shortness of breath, difficulty breathing, chest pain, palpitations, chest pressure. Denies breast pain. Denies dysuria. Denies headache or changes in vision. Physical Exam <Maria Elena SMariangel Weaver DO - Last Filed: 08/04/22 06:27> General: Alert, oriented. No acute distress. Cardiac: Regular rate and rhythm, no murmurs/rubs/gallops. Respiratory: Clear to auscultation bilaterally a/p, no wheezes/rales/rhonchi. No increased work of breathing. Symmetrical chest rise. No respiratory distress. Abdomen: Soft, nontender, nondistended. Uterus: Uterine fundus firm, palpable at umbilicus. Lower Extremities: No lower extremity edema or swelling. No deep calf pain. Skin: red raised rash on back Results & Data ([facility]) <Maria Elena Raj Weavre DO - Last Filed: 08/04/22 06:27> Vital Signs (Past 12 Hours) Vital Signs Temp Pulse Resp BP Pulse Ox O2 Del Method 08/04/22 03:20 36.4 C L 67 18 99/61 L 97 Room Air 08/04/22 00:40 Room Air 08/04/22 00:40 36.9 C 82 18 128/79 99 Room Air 08/03/22 20:00 36.5 C 62 16 122/77 99 Room Air <Dottie Mcarthur MD - Last Filed: 08/04/22 06:43> Co-Signing Physician Notes Resident Physician Supervision Note: I interviewed and examined the patient. Discussed with Dr. Weaver and agree with findings and plan as documented in the note. Any exceptions or clarifications are listed here: [ ] Documented By: Dottie Mcarthur MD, FACOG Resident Activity Tracking <Maria Elena Weaver, - Last Filed: 08/04/22 06:27> Resident Involvement: Resident Care Provided Care Provided: OB Delivery (post )
[2022-08-04 06:12] LABS: Hematocrit (blood only) 29.8 % (37.0-47.0); Hemoglobin 10.5 g/dl (12.0-16.0); Mean Corpuscular Hemoglobin 32.5 pg (25.0-34.0); Mean Corpuscular Hgb Conc 35.2 g/dL (32.0-36.0); Mean Corpuscular Volume 92.3 fL (80.0-100.0); Mean Platelet Volume 10.2 fL (9.4-12.4); Platelet Count 181 K/uL (130-400); RDW Standard Deviation 43.3 fL (36.4-46.3); Red Blood Count 3.23 M/uL (4.20-5.40); White Blood Count 13.01 K/ul (4.8-10.8)
[2022-08-04] MEDS ORDERED: PRENATAL VITAMIN 1 TAB PO SCH (08:00)
[2022-08-04] MEDS: IBUPROFEN 600 MG TAB PO PRN (08:39)
[2022-08-04] MEDS: DOCUSATE SODIUM 100 MG CAP PO SCH (08:41)
[2022-08-04] MEDS ORDERED: bisacodyL 5 MG TABEC PO SCH (20:00)
== END 2022-08-04 16:30 | disposition home or self-care (01) | DRG 807 ==
LOC: 4S1 07:40 → 4E2 08-03 13:59